=== PATIENT | female | born 1960 | race Hispanic/Latino ===

== ENCOUNTER 2024-02-10 13:47 | Emergency (ER) | payer OTHER ==
--- NOTE | 2024-02-10 14:48 | RAD REPORT ---
EXAM DESCRIPTION: CT - CTHCSPWOC - 02/10/2024 2:35 pm CLINICAL HISTORY: Trauma, head and neck injury. fall, neck pain, dizziness COMPARISON: No comparisons TECHNIQUE: Axial 5 mm thick images of the head were obtained. Axial 2 mm thick images of the cervical spine were obtained with sagittal and coronal reconstruction images generated and reviewed. All CT scans are performed using dose optimization technique as appropriate and may include automated exposure control or mA/KV adjustment according to patient size. FINDINGS: CT HEAD WITHOUT CONTRAST: No acute hemorrhage, hydrocephalus or extra-axial collection is identified.No areas of brain edema or midline shift. The paranasal sinuses and mastoids are clear.The calvarium is intact. CT CERVICAL SPINE WITHOUT CONTRAST: No fracture or subluxation.No prevertebral soft tissues swelling is identified. IMPRESSION: No acute intracranial or cervical spine findings.
[2024-02-10] MEDS ORDERED: IBUPROFEN 200 MG TAB PO ONE (15:10)
[2024-02-10] MEDS ORDERED: HYDROCODONE/APAP 5/325 MG TAB ONE (15:10)
--- NOTE | 2024-02-10 15:42 | RAD REPORT ---
EXAM DESCRIPTION: RAD - Humerus Right - 02/10/2024 3:29 pm CLINICAL HISTORY: PAIN COMPARISON: No comparisons FINDINGS/IMPRESSION: No acute fracture. No malalignment. No significant focal degenerative changes.
--- NOTE | 2024-02-10 15:42 | RAD REPORT ---
EXAM DESCRIPTION: RAD - Shoulder Right 2 View - 02/10/2024 3:29 pm CLINICAL HISTORY: PAIN COMPARISON: No comparisons FINDINGS/IMPRESSION: No acute fracture. No dislocation Moderate right AC joint degenerative changes. Question high-riding right humeral head which could indicate rotator cuff pathology.
--- NOTE | 2024-02-10 16:27 | ER ---
Nurse's Notes [facility] Name: Brittny Martin Age: 63 yrs Sex: Female : 1960 Arrival Date: 02/10/2024 Time: 13:47 Bed 8 Private MD: Diagnosis: Contusion of right shoulder;Other sprain of right shoulder joint Presentation: 02/09 14:14 Chief complaint: Patient states: C/O severe pain to right shoulder/arm. Denies injury. ld1 Shoulder surgery 10 years ago. Coronavirus screen: At this time, the client does not indicate any symptoms associated with coronavirus-19. Ebola Screen: No symptoms or risks identified at this time. Initial Sepsis Screen: Does the patient meet any 2 criteria? No. Patient's initial sepsis screen is negative. Does the patient have a suspected source of infection? No. Patient's initial sepsis screen is negative. Risk Assessment: Do you want to hurt yourself or someone else? Patient reports no desire to harm self or others. Onset of symptoms was February 10, 2024. 14:14 Method Of Arrival: Ambulatory ld1 14:14 Acuity: NEETA 3 ld1 Triage Assessment: 14:15 General: Appears in no apparent distress. comfortable, Behavior is calm, cooperative, ld1 appropriate for age. Pain: Complains of pain in anterior aspect of right shoulder, right axilla and right bicep Pain does not radiate. Pain currently is 9 out of 10 on a pain scale. Quality of pain is described as sharp, throbbing, Pain began 1 hour ago. Is continuous. EENT: No signs and/or symptoms were reported regarding the EENT system. Neuro: Level of Consciousness is awake, alert, obeys commands, Oriented to person, place, time, situation, Appropriate for age. Cardiovascular: Capillary refill < 3 seconds Patient's skin is warm and dry. Rhythm is sinus rhythm. Respiratory: Airway is patent Respiratory effort is even, unlabored. GI: Abdomen is round non-distended. : No signs and/or symptoms were reported regarding the genitourinary system. Derm: No signs and/or symptoms reported regarding the dermatologic system. Musculoskeletal: No signs and/or symptoms reported regarding the musculoskeletal system. Historical: - Allergies: 14:15 Lyrica; ld1 - PMHx: 14:15 Arthritis; Thyroid problem; ld1 - Immunization history:: Adult Immunizations up to date. - Infectious Disease History:: Denies. - Social history:: Smoking status: Patient denies any tobacco usage or history of. - Family history:: not pertinent. - Hospitalizations: : No recent hospitalization is reported. Screenin:17 [facility] ED Fall Risk Assessment (Adult) History of falling in the last 3 months, ld1 including since admission No falls in past 3 months (0 pts) Confusion or Disorientation No (0 pts) Intoxicated or Sedated No (0 pts) Impaired Gait No (0 pts) Mobility Assist Device Used No (0 pt) Altered Elimination No (0 pt) Score/Fall Risk Level 0 - 2 = Low Risk Oriented to surroundings, Maintained a safe environment, Educated pt \T\ family on fall prevention, incl call for assistance when getting out of bed, Assessed \T\ reinforced patient's understanding of fall precautions, Provided non-skid footwear, Hourly rounding (assess needs \T\ fall precautionary measures) done, Used ambulatory aids as needed (educated on \T\ assisted with), Used gait belt as appropriate. Abuse screen: Denies threats or abuse. Denies injuries from another. Nutritional screening: No deficits noted. Tuberculosis screening: No symptoms or risk factors identified. Assessment: 14:17 Reassessment: See triage assessment. ld1 Vital Signs: 14:14 BP 129 / 81; Pulse 98; Resp 18; Temp 97.6(TE); Pulse Ox 95% on R/A; Weight 118 kg; ld1 Height 5 ft. 5 in. ; Pain 9/10; 15:30 BP 107 / 85; Pulse 79; Resp 18; Pulse Ox 100% on R/A; ar6 14:14 Body Mass Index 43.29 (118.00 kg, 165.1 cm) ld1 14:14 Pain Scale: Adult ld1 ED Course: 13:50 Patient arrived in ED. mg5 13:51 Broderick Mendoza MD is Attending Physician. rn 14:15 Triage completed. ld1 14:15 Arm band placed on right wrist. ld1 14:17 Patient has correct armband on for positive identification. Placed in gown. Bed in low ld1 position. Call light in reach. Side rails up X2. Pulse ox on. NIBP on. desk monitor on. Door closed. Noise minimized. Warm blanket given. 14:17 No provider procedures requiring assistance completed. ld1 14:37 CT Head C Spine In Process Unspecified. EDMS 15:26 Chana Olson, RN is Primary Nurse. ld1 15:31 XRAY Shoulder RIGHT 2 view In Process Unspecified. EDMS 15:31 XRAY Humerus RIGHT In Process Unspecified. EDMS 16:49 Shoulder immobilizer applied on right shoulder. em1 18:10 Patient did not have IV access during this emergency room visit. kc6 Administered Medications: 15:16 Drug: HYDROcodone-acetaminophen PO 5 mg-325 mg 1 tabs PO once Route: PO; kc6 16:45 Follow up: Response: No adverse reaction; Pain is decreased; RASS: Alert and Calm (0) kc6 15:16 Drug: Ibuprofen PO 600 mg PO once Route: PO; kc6 16:45 Follow up: Response: No adverse reaction; Pain is decreased kc6 Medication: 14:17 VIS not applicable for this client. ld1 Outcome: 16:27 Discharge ordered by . rn 18:09 Discharged to home ambulatory, with family, kc6 18:09 Condition: good 18:09 Discharge instructions given to patient, family, Instructed on discharge instructions, follow up and referral plans. medication usage, Demonstrated understanding of instructions, follow-up care, medications, Prescriptions given X 1, 18:10 Patient left the ED. kc6 Signatures: Dispatcher [employer] Broderick Rivero MD MD rn Martinez, Eric em1 Chana Olson RN RN ld1 Margot Higginbotham RN RN [id number] Lynn Hernandez 5 Nancy Ortiz RN RN ar6
--- NOTE | 2024-02-10 16:27 | EDPHYS ---
Physician Documentation [facility] Name: Brittny Martin Age: 63 yrs Sex: Female : 1960 Arrival Date: 02/10/2024 Time: 13:47 Bed 8 Private MD: ED Physician Broderick Mendoza HPI: 02/09 14:45 This 63 yrs old Female presents to ER via Ambulatory with complaints of Arm rn Pain. 14:45 The patient or guardian complains of decreased range of motion, injury, pain. The rn complaints affect the anterior aspect of right shoulder and right bicep. Onset: The symptoms/episode began/occurred 1 week(s) ago. Modifying factors: The symptoms are alleviated by nothing. the symptoms are aggravated by movement. Severity of symptoms: At their worst the symptoms were moderate, in the emergency department the symptoms are unchanged. The patient has not experienced similar symptoms in the past. Patient reports fall from standing 1 week ago. Injured right shoulder. Also reports pain to the right neck. Today while at grocery store had increased pain with range of motion to the right shoulder and got lightheaded, no syncopal episode, no chest pain or shortness of breath. Has not been evaluated for shoulder injury since the fall.. Historical: - Allergies: 14:15 Lyrica; ld1 - PMHx: 14:15 Arthritis; Thyroid problem; ld1 - Immunization history:: Adult Immunizations up to date. - Infectious Disease History:: Denies. - Social history:: Smoking status: Patient denies any tobacco usage or history of. - Family history:: not pertinent. - Hospitalizations: : No recent hospitalization is reported. ROS: 14:45 Constitutional: Negative for fever, chills, and weight loss, Neck: Mild right neck pain recovery room rn: Negative for chest pain, palpitations, and edema, Respiratory: Negative for shortness of breath, cough, wheezing, and pleuritic chest pain, Abdomen/GI: Negative for abdominal pain, nausea, vomiting, diarrhea, and constipation, Back: Negative for injury and pain, MS/Extremity: Positive for injury and pain to the right shoulder Neuro: Negative for headache, weakness, numbness, tingling, and seizure, Exam: 14:45 Constitutional: This is a well developed, well nourished patient who is awake, alert, rn and in no acute distress. Neck: No midline cervical tenderness MS/ Extremity: Pulses equal, no cyanosis. Neurovascular intact. Tenderness proximal right humerus with painful range of motion, no significant ecchymosis Vital Signs: 14:14 BP 129 / 81; Pulse 98; Resp 18; Temp 97.6(TE); Pulse Ox 95% on R/A; Weight 118 kg; ld1 Height 5 ft. 5 in. ; Pain 9/10; 15:30 BP 107 / 85; Pulse 79; Resp 18; Pulse Ox 100% on R/A; ar6 14:14 Body Mass Index 43.29 (118.00 kg, 165.1 cm) ld1 14:14 Pain Scale: Adult ld1 MDM: 13:51 Patient medically screened. rn 16:26 Differential diagnosis: closed fracture, contusion. Differential diagnosis: tendon rn injury, strain, sprain. Data reviewed: vital signs, nurses notes, radiologic studies, plain films, and as a result, I will discharge patient. Counseling: I had a detailed discussion with the patient and/or guardian regarding the historical points, exam findings, and any diagnostic results supporting the discharge/admit diagnosis, radiology results, the need for outpatient follow up, to return to the emergency department if symptoms worsen or persist or if there are any questions or concerns that arise at home. Special discussion: I discussed with the patient/guardian in detail that at this point there is no indication for admission to the hospital. It is understood, however, that if the symptoms persist or worsen the patient needs to return immediately for re-evaluation. Further emergent ED testing is not indicated at this point in time. I discussed with the patient/guardian in detail the need to arrange with the PCP or specialist further outpatient testing, MRI, Based on the history and exam findings, there is no indication for further emergent testing or inpatient evaluation. I discussed with the patient/guardian the need to see the orthopedic surgeon for further evaluation of the symptoms. 02/09 14:26 Order name: CT Head C Spine; Complete Time: 15:44 rn 02/09 14:26 Order name: XRAY Shoulder RIGHT 2 view; Complete Time: 15:44 rn 02/09 14:26 Order name: XRAY Humerus RIGHT; Complete Time: 15:44 rn 02/09 16:26 Order name: Shoulder Immobilizer; Complete Time: 16:45 rn Administered Medications: 15:16 Drug: HYDROcodone-acetaminophen PO 5 mg-325 mg 1 tabs PO once Route: PO; kc6 16:45 Follow up: Response: No adverse reaction; Pain is decreased; RASS: Alert and Calm (0) kc6 15:16 Drug: Ibuprofen PO 600 mg PO once Route: PO; kc6 16:45 Follow up: Response: No adverse reaction; Pain is decreased kc6 Disposition Summary: 02/10/24 16:27 Discharge Ordered Notes: Location: Home rn Problem: new rn Symptoms: have improved rn Condition: Stable rn Diagnosis - Contusion of right shoulder rn - Other sprain of right shoulder joint rn Followup: rn - With: Private Physician - When: As needed - Reason: Recheck today's complaints, Re-evaluation by your physician Discharge Instructions: - Discharge Summary Sheet rn - Contusion rn - Shoulder Sprain rn - How to Use a Sling rn Forms: - Medication Reconciliation Form rn - 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
[2024-02-10 18:14] VITALS: TEMP 97.6
[2024-02-10 18:16] VITALS: BP 107/85; O2SAT 100
== END 2024-02-10 18:10 | disposition home or self-care (01) ==
LOC: ER 13:47
DX: S43.491A Other sprain of right shoulder joint, initial encounter (principal)
CPT/HCPCS: 70450; 72125